=== PATIENT | male | born 1960 ===

== ENCOUNTER 2017-01-17 23:21 | Emergency (ER) | payer SELFPAY ==
[2017-01-17 23:32] VITALS: TEMP 98.9
--- NOTE | 2017-01-18 01:00 | ED PDOC ---
HPI: SOB/CHF/COPD Time Seen by Provider: 01/17/17 23:46 Chief Complaint (Nursing): Shortness Of Breath Chief Complaint (Provider): Shortness of breath History Per: EMS, Family History/Exam Limitations: clinical condition, intoxication Additional Complaint(s): Patient is a 56 y/o male with a past medical history of chronic COPD, asthma, and hypertension brought to the emergency department by EMS from his home for acute alcohol intoxication and shortness of breath. Per family, patient was drinking alcohol and smoking a cigarette when he started feeling short of breath and wheezy. Also may have snorted heroin. Of note, patient is known to use cocaine. Patient admits to drinking but denies chest pain or other complaints. Patient was also given nebs by EMS en route to ED. History is limited due to patient's clinical condition. PCP: none provided. Past Medical History Reviewed: Historical Data, Nursing Documentation, Vital Signs Vital Signs: Last Vital Signs Temp 98.9 F 01/17/17 23:24 Pulse 79 01/18/17 02:32 Resp 20 01/18/17 02:32 BP 129/73 01/18/17 02:32 Pulse Ox 100 01/18/17 02:32 - Medical History PMH: Asthma, COPD, HTN, Chronic Pain (back) - Surgical History Surgical History: Hernia Repair Other surgeries: Splenectomy - Family History Family History: States: Unknown Family Hx, Hypertension - Home Medications Home Medications: Ambulatory Orders Medication Instructions Recorded Albuterol HFA [Ventolin HFA 90 2 puff IH Q6H PRN 07/31/15 mcg/actuation (8 g)] Budesonide/Formoterol Fumarate 2 puff IH Q12H 07/31/15 [Symbicort 160-4.5 Mcg Inhaler] Oxycodone HCl/Acetaminophen 1 tab PO TID PRN 07/31/15 [Percocet 5-325 mg Tablet] Albuterol 0.5% [Albuterol 0.5% 3 ml IH Q4H PRN #50 neb 01/30/16 Inhal Kaycee (2.5 mg/0.5 ml) UD] Albuterol HFA [Ventolin HFA 90 2 puff IH Q4H PRN #1 inh 01/30/16 mcg/actuation (8 g)] Azithromycin [Zithromax] 250 mg PO DAILY #6 dose 01/30/16 Oxymetazoline 0.05% [Afrin 0.05%] 30 spr NS Q12H #1 bottle 01/30/16 Pseudoephedrine [Sudafed Tab] 30 mg PO Q6 PRN #30 tab 01/30/16 traMADol [Ultram] 1 tab PO TID 01/30/16 Prednisone [Deltasone] 40 mg PO DAILY 4 Days tablet 02/10/16 Albuterol HFA [Ventolin HFA 90 2 puff IH [id number] #30 puff 01/18/17 mcg/actuation (8 g)] Prednisone 50 mg PO DAILY #4 tablet 01/18/17 - Allergies Allergies/Adverse Reactions: Allergies Allergy/AdvReac Type Severity Reaction Status Date / Time No Known Allergies Allergy Verified 01/17/17 23:32 Review of Systems ROS Statement: Except As Marked, All Systems Reviewed And Found Negative Cardiovascular: Negative for: Chest Pain Psych: Positive for: Other (EtOH intoxication) Physical Exam - Reviewed Nursing Documentation Reviewed: Yes Vital Signs Reviewed: Yes - Physical Exam Appears: Positive for: No Acute Distress, Uncomfortable Head Exam: Positive for: ATRAUMATIC, NORMAL INSPECTION, NORMOCEPHALIC Skin: Positive for: Normal Color, Warm, Dry Eye Exam: Positive for: Normal appearance, PERRL Neck: Positive for: Normal, Supple Cardiovascular/Chest: Positive for: Regular Rate, Rhythm. Negative for: Murmur Respiratory: Positive for: Normal Breath Sounds. Negative for: Accessory Muscle Use, Respiratory Distress Gastrointestinal/Abdominal: Positive for: Normal Exam, Soft. Negative for: Tenderness Extremity: Positive for: Normal ROM. Negative for: Pedal Edema Neurologic/Psych: Positive for: Other (somnolent but easily arousable to voice and touch) - Laboratory Results Result Diagrams: 01/18/17 01:22 01/18/17 01:22 - ECG ECG Rhythm: Positive for: Normal QRS, Sinus Rhythm. Negative for: ST/T Changes Rate: 83 O2 Sat by Pulse Oximetry: 99 (RA) Pulse Ox Interpretation: Normal Medical Decision Making Medical Decision Making: Time: 00:36 Initial impression: Alcohol abuse, opioid abuse, and chronic COPD. Initial plan: ABG EKG Alcohol serum levels BMP Urine Drug Screening CBC Reevaluation 0600 Patient is alert and awake. Bilateral wheezes on exam. Ordered duonebs. 0700 Patient is improved. Stable for discharge. Scribe Attestation: Documented by Nabila Whitaker, acting as a scribe for Teena Ashby MD. Provider Scribe Attestation: All medical record entries made by the Scribe were at my direction and personally dictated by me. I have reviewed the chart and agree that the record accurately reflects my personal performance of the history, physical exam, medical decision making, and the department course for this patient. I have also personally directed, reviewed, and agree with the discharge instructions and disposition. Disposition - Clinical Impression Clinical Impression: COPD exacerbation, Substance abuse - Patient ED Disposition Is Patient to be Admitted: No Counseled Patient/Family Regarding: Studies Performed, Diagnosis, Need For Followup - Disposition Referrals: [facility] [Outside] Disposition: Routine/Home Disposition Time: 07:00 Condition: GOOD Additional Instructions: Follow up with your PCP in 2-3 days. Prescriptions: Albuterol HFA [Ventolin HFA 90 mcg/actuation (8 g)] 2 puff IH [id number] #30 puff Prednisone 50 mg PO DAILY #4 tablet Instructions: COPD (Chronic Obstructive Pulmonary Disease) (ED), Polysubstance Abuse (ED)
[2017-01-18 01:38] LABS: ALCOHOL SERUM < 10 mg/dl (0-10); BLOOD UREA NITROGEN 18 mg/dl (9-20); CALCIUM 9.2 mg/dL (8.4-10.2); CARBON DIOXIDE 30 mmol/L (22-30); CHLORIDE 104 mmol/L (98-107); GFR AFRICAN-AMERICAN > 60; GLUCOSE,RANDOM 83 mg/dL (75-110); POTASSIUM 4.6 MMOL/L (3.6-5.0); SODIUM 142 mmol/l (132-148)
[2017-01-18 01:58] LABS: BASO # 0.1 K/uL (0.0-0.2); BASO % 0.6 % (0.0-2.0); EOS # 0.5 K/uL (0.0-0.7); EOS % 3.8 % (0.0-4.0); HEMATOCRIT 38.6 % (35.0-51.0); LYMPH # 2.5 K/uL (1.0-4.3); LYMPH % 19.8 % (20.0-40.0); MEAN CELL VOLUME 96.4 fl (80.0-94.0); MEAN CORPUSCULAR HEMOGLOBIN 32.1 pg (27.0-31.0); MEAN CORPUSCULAR HGB CONC 33.3 g/dL (33.0-37.0); MEAN PLATELET VOLUME 9.1 fl (7.2-11.7); MONO # 1.8 K/uL (0.0-0.8); NEUT # 7.8 K/uL (1.8-7.0); NEUT % 61.8 % (50.0-75.0); NRBC % 0.1 % (0.0-0.0); RED CELL DISTRIBUTION WIDTH 14.1 % (11.5-14.5); WHITE BLOOD COUNT 12.6 K/uL (4.8-10.8)
[2017-01-18 03:09] VITALS: BP 129/73; RESP 20
[2017-01-18] MEDS ORDERED: Albuterol-Ipratrop 3 mg / 0.5 (3 ml) UD INH STA ×2 (06:12→06:54)
--- NOTE | 2017-01-18 10:50 | CARD ---
APPROVED REPORT EKG Measurement Heart [id number] CT [id number] <Conclusion> Normal sinus rhythm Normal ECG
[2017-01-26 23:30] VITALS: PULSE 83; O2SAT 99
== END 2017-01-18 07:36 | disposition home or self-care (01) ==
LOC: H.ER 23:21
DX: J44.1 Chronic obstructive pulmonary disease with (acute) exacerbation (principal); F11.10 Opioid abuse, uncomplicated; G89.29 Other chronic pain; I10 Essential (primary) hypertension; F10.129 Alcohol abuse with intoxication, unspecified
CPT/HCPCS: 80048; 85025; 93005; 99285; G0480

== ENCOUNTER 2017-05-21 21:38 | Emergency (ER) | payer MEDICAID ==
[2017-05-21] MEDS ORDERED: Albuterol-Ipratrop 3 mg / 0.5 (3 ml) UD INH STA (22:01)
[2017-05-21] MEDS ORDERED: Albuterol-Ipratrop 3 mg / 0.5 (3 ml) UD ONE (22:10)
[2017-05-21] MEDS ORDERED: Lidocaine 5% Patch TD STA (22:25)
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
[2017-05-21] MEDS ORDERED: Lidocaine 5% Patch TD ONE (22:51)
[2017-05-21] MEDS ORDERED: Albuterol 0.083% Inhal Sol (2.5 mg/3 mL) UD IH STA (23:31)
[2017-05-21] MEDS ORDERED: Albuterol 0.083% Inhal Sol (2.5 mg/3 mL) UD ONE (23:33)
[2017-05-22 00:16] VITALS: BP 160/90; PULSE 87; RESP 16; TEMP 98.4; O2SAT 93
--- NOTE | 2017-05-23 10:04 | RAD ---
HISTORY: sob COMPARISON: Chest radiograph dated 04/12/2015 FINDINGS: LUNGS: No active pulmonary disease. PLEURA: No significant pleural effusion identified, no pneumothorax apparent. CARDIOVASCULAR: Normal. OSSEOUS STRUCTURES: Unchanged. VISUALIZED UPPER ABDOMEN: Normal. OTHER FINDINGS: None. IMPRESSION: No active disease.
== END 2017-05-22 00:17 | disposition home or self-care (01) ==
LOC: H.ER 21:38
DX: J44.1 Chronic obstructive pulmonary disease with (acute) exacerbation (principal); G89.29 Other chronic pain; I10 Essential (primary) hypertension
CPT/HCPCS: 71045; 94150; 94640; 96372; 99284; J2930

== ENCOUNTER 2017-07-09 19:53 | Observation (INO) | payer MEDICAID ==
[2017-07-09] MEDS ORDERED: Albuterol-Ipratrop 3 mg / 0.5 (3 ml) UD INH STA (20:25)
[2017-07-09] MEDS ORDERED: Magnesium Sulfate 2 gm/50 ml 2 GM/50 ML BAG IV STA ×2 (20:25→22:25)
[2017-07-09] MEDS ORDERED: Magnesium Sulfate 2 gm/50 ml 2 GM/50 ML BAG ONE (20:35)
--- NOTE | 2017-07-09 20:39 | ED PDOC ---
HPI: SOB/CHF/COPD Time Seen by Provider: 07/09/17 20:06 Chief Complaint (Nursing): Shortness Of Breath Chief Complaint (Provider): Shortness Of Breath History Per: Patient History/Exam Limitations: no limitations Onset/Duration Of Symptoms: Days (x2) Current Symptoms Are (Timing): Still Present Additional Complaint(s): 56 year old male with a pmhx of asthma presents to the emergency department via EMS complaining of shortness of breath, wheezing, and dry cough onset two days ago. Denies fever, vomiting, diarrhea. Patient states he has had multiple visits to the ED for similar asthma symptoms and treatments. He reports using his inhaler, nebulizer, and on-hand prednisone without any relief. Patient is a smoker, which he states is a trigger for his asthma. PMD: none provided Past Medical History Reviewed: Historical Data, Nursing Documentation, Vital Signs Vital Signs: Last Vital Signs Temp 98.3 F 07/10/17 00:54 Pulse 83 07/10/17 00:54 Resp 20 07/10/17 00:54 BP 137/87 07/10/17 00:54 Pulse Ox 94 L 07/10/17 00:54 - Medical History PMH: Asthma, COPD, Diverticulitis, HTN, Chronic Pain (back) - Surgical History Surgical History: Hernia Repair - Family History Family History: States: Unknown Family Hx, Hypertension - Social History Current smoker - smoking cessation education provided: Yes (6 cigarettes daily) - Home Medications Home Medications: Ambulatory Orders Medication Instructions Recorded Albuterol HFA [Ventolin HFA 90 2 puff IH Q6H PRN 07/31/15 mcg/actuation (8 g)] Oxycodone HCl/Acetaminophen 1 tab PO TID PRN 07/31/15 [Percocet 5-325 mg Tablet] Prednisone 50 mg PO DAILY #4 tablet 01/18/17 Lidocaine 5% [Lidoderm] 1 ea TD DAILY PRN #30 patch 05/22/17 Naproxen [Naprosyn] 1 tab PO BID PRN #30 tab 05/22/17 Methylprednisolone [Medrol Dosepak] 4 mg PO ASDIR #1 pkg 07/09/17 - Allergies Allergies/Adverse Reactions: Allergies Allergy/AdvReac Type Severity Reaction Status Date / Time No Known Allergies Allergy Verified 07/09/17 19:58 Review of Systems ROS Statement: Except As Marked, All Systems Reviewed And Found Negative Constitutional: Negative for: Fever Respiratory: Positive for: Cough (dry), Shortness of Breath, Wheezing Gastrointestinal: Negative for: Vomiting, Diarrhea Physical Exam - Reviewed Nursing Documentation Reviewed: Yes Vital Signs Reviewed: Yes - Physical Exam Appears: Positive for: Non-toxic, No Acute Distress Head Exam: Positive for: ATRAUMATIC, NORMOCEPHALIC Skin: Positive for: Normal Color, Warm, Dry Eye Exam: Positive for: Normal appearance, EOMI, PERRL ENT: Positive for: Normal ENT Inspection Neck: Positive for: Normal, Painless ROM, Supple Cardiovascular/Chest: Positive for: Regular Rate, Rhythm. Negative for: Murmur Respiratory: Positive for: Decreased Breath Sounds (on inhalation bilaterally), Wheezing (mild expiratory bilaterally), Respiratory Distress (mild) Gastrointestinal/Abdominal: Positive for: Normal Exam, Soft. Negative for: Tenderness Back: Positive for: Normal Inspection Extremity: Positive for: Normal ROM Neurologic/Psych: Positive for: Alert, Oriented - Laboratory Results Result Diagrams: 07/09/17 21:08 07/09/17 21:08 - ECG O2 Sat by Pulse Oximetry: 97 (RA) Pulse Ox Interpretation: Normal Medical Decision Making Medical Decision Making: Time: 20:10 Initial Impression: 56 year old male with shortness of breath and wheezing with acute asthma exacerbation, respiratory distress Initial Plan: --EKG --BMP --CBC with differential --Duoneb 9ml INH --Magnesium sulfate 2gm Sodium Chloride 100ml IV --methylprednisolone 125mg IVP --Peak flow pre/post tx 22:30 On reexamination, patient still has persistent wheezing. Pt notes only mild improvement in symptoms. On reexam he has persitent wheezing and mild resp distress He will be placed on observation status for COPD exacerbation. Case referred to Dr. Avendano. Scribe Attestation: Documented by Briseyda Ryees, acting as a scribe for Juliocesar Dhillon MD. Provider Scribe Attestation: All medical record entries made by the Scribe were at my direction and personally dictated by me. I have reviewed the chart and agree that the record accurately reflects my personal performance of the history, physical exam, medical decision making, and the department course for this patient. I have also personally directed, reviewed, and agree with the discharge instructions and disposition. Disposition - Clinical Impression Clinical Impression: COPD exacerbation - Patient ED Disposition Is Patient to be Admitted: No Counseled Patient/Family Regarding: Studies Performed, Diagnosis, Smoking Cessation - Disposition Disposition: Routine/Home Disposition Time: 22:30 Condition: FAIR - Pt Status Changed To: Hospital Disposition Of: Observation
[2017-07-09 21:12] LABS: BASO % 0.1 % (0.0-2.0); HEMOGLOBIN 13.8 g/dL (12.0-18.0); LYMPH # 0.6 K/uL (1.0-4.3); LYMPH % 6.1 % (20.0-40.0); MEAN CELL VOLUME 97.6 fl (80.0-94.0); MEAN CORPUSCULAR HEMOGLOBIN 32.3 pg (27.0-31.0); MEAN CORPUSCULAR HGB CONC 33.2 g/dL (33.0-37.0); MEAN PLATELET VOLUME 9.4 fl (7.2-11.7); MONO # 0.6 K/uL (0.0-0.8); MONO % 6.2 % (0.0-10.0); NEUT # 8.2 K/uL (1.8-7.0); NEUT % 87.6 % (50.0-75.0); PLATELET COUNT 225 K/uL (130-400); RBC 4.25 Mil/uL (4.40-5.90); RED CELL DISTRIBUTION WIDTH 14.5 % (11.5-14.5); WHITE BLOOD COUNT 9.4 K/uL (4.8-10.8)
[2017-07-09 21:21] LABS: BLOOD UREA NITROGEN 17 mg/dl (9-20); CALCIUM 9.6 mg/dL (8.4-10.2); GFR AFRICAN-AMERICAN > 60; GFR NON-AFRICAN AMERICAN > 60
[2017-07-09 21:42] LABS: BANDS 1 % (0-2); LYMPHOCYTE 6 % (20-50); MONOCYTE 3 % (0-10); NEUTROPHIL 90 % (42-75); PLATELET ESTIMATE NORMAL (NORMAL); TOTAL CELLS COUNTED 100
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
[2017-07-09] MEDS ORDERED: Albuterol 0.083% Inhal Sol (2.5 mg/3 mL) UD INH PRN (23:15)
[2017-07-10] MEDS ORDERED: methylPREDNISolone 40 MG in Sodium Chloride 0.9% 50 ML IVPB SCH (04:00)
[2017-07-10] MEDS ORDERED: MethylPREDNISolone 40 mg Vial IVP SCH (04:00)
[2017-07-10] MEDS: guaiFENesin 600 mg ER Tab PO SCH ×2 (04:15→09:09)
[2017-07-10] MEDS: Albuterol-Ipratrop 3 mg / 0.5 (3 ml) UD INH SCH ×6 (04:53→19:59)
[2017-07-10] MEDS: Sodium Chloride 0.45% 1,000 ML IV SCH ×3 (04:59→22:37)
--- NOTE | 2017-07-10 08:11 | CP.PCM.PN ---
Subjective - Date & Time of Evaluation Date of Evaluation: 07/10/17 Time of Evaluation: 08:11 - Subjective Subjective: pt continues to wheeze with some fatigue with speech. dyspnea mildly improving hd stable nad patient refusing bloodwork this AM Objective - Vital Signs/Intake and Output Vital Signs (last 24 hours): Temp Pulse Resp BP Pulse Ox 97.6 F 76 18 159/67 H 94 L 07/10/17 07:53 07/10/17 07:53 07/10/17 07:53 07/10/17 07:53 07/10/17 07:53 Vitals Reviewed GEN: WDWN, alert, cooperative HEENT: NCAT, PERRL, EOMI HEART: RRR, +S1S2, NO MRG LUNG: +WHEEZE THROUGHOUT ALL LUNG [place], MILD FATIGUE WITH SPEAKING ABD: soft, NT, ND, No HSM, No masses EXT: normal pedal pulses, normal capillary refill NEURO: awake, alert, no focal deficits SKIN: warm, dry PSYCH: normal mood, normal affect - Medications Medications: Current Medications Albuterol Sulfate (Albuterol 0.083% Inhal [place] (2.5 Mg/3 Ml) Ud) 2.5 mg INH RQ2 PRN PRN Reason: Shortness of Breath Albuterol/Ipratropium (Duoneb 3 Mg/0.5 Mg (3 Ml) Ud) 3 ml INH RQ4 [facility] Last Admin: 07/10/17 07:40 Dose: 3 ml Enoxaparin Sodium (Lovenox) 40 mg SC DAILY ADAN PRN Reason: Protocol Guaifenesin (Mucinex La) 600 mg PO Q12 [facility] Last Admin: 07/10/17 04:15 Dose: Not Given Sodium Chloride (Sodium Chloride 0.45%) 1,000 mls @ 100 mls/hr IV .Q10H [facility] Stop: 07/10/17 23:19 Last Admin: 07/10/17 04:59 Dose: 100 mls/hr Methylprednisolone (Solu-Medrol) 40 mg IVP Q6 [facility] Last Admin: 07/10/17 04:34 Dose: 40 mg - Labs Labs: 07/09/17 21:08 07/09/17 21:08 Assessment and Plan - Assessment and Plan (Free Text) Plan: 56 years old male with hx of Asthma comes with 2 days of persistent SOB and wheezing not being relieved by his inhaler, nebulizer nor his Prednisone tablets. Associated also is non productive cough, but no chest pain, fever vomiting , diarrhea nor palpitations. He uses cigarettes which sometimes initiates his Asthma. Asthma with COPD exacerbation - patient is mildly improving, however continues to wheeze, very tight. Will benefit from likely one more day of bronchodilators and steroids. - oxygen - Duoneb q4H - Albuterol q2h PRN - Solumedrol 60 mg IVP q8 - IV fluid #. Hyperkalemia - Follow electrolytes - patient refusing blood work this morning. #. Hyperglycemia - HbA1c #. DVT prophylaxis with Lovenox #. Code status: Full
--- NOTE | 2017-07-10 08:58 | RAD ---
HISTORY: SOB COMPARISON: 05/21/2017. FINDINGS: LUNGS: The lungs are well inflated and clear. There is mild pulmonary venous congestion. PLEURA: No significant pleural effusion identified, no pneumothorax apparent. CARDIOVASCULAR: Normal. OSSEOUS STRUCTURES: No significant abnormalities. VISUALIZED UPPER ABDOMEN: Normal. OTHER FINDINGS: None. IMPRESSION: No active pulmonary disease.
[2017-07-10] MEDS: Enoxaparin 40 mg Syringe SC SCH (09:09)
[2017-07-10 12:08] LABS: BLOOD UREA NITROGEN 18 mg/dl (9-20); CALCIUM 9.4 mg/dL (8.4-10.2); GFR AFRICAN-AMERICAN > 60; GFR NON-AFRICAN AMERICAN > 60
[2017-07-10 15:42] VITALS: O2SAT 95
[2017-07-10 23:00] LABS: BARBITURATES, UR NEGATIVE (NEGATIVE); BENZODIAZEPINES, UR NEGATIVE (NEGATIVE); OPIATES, UR POSITIVE (NEGATIVE); PHENCYCLIDINE, UR NEGATIVE (NEGATIVE)
[2017-07-11] MEDS ORDERED: Oxycodone/Acetaminophen 5/325 mg Tab PO STA (00:35)
[2017-07-11] MEDS: Albuterol-Ipratrop 3 mg / 0.5 (3 ml) UD INH SCH ×3 (00:43→07:06)
[2017-07-11] MEDS: Enoxaparin 40 mg Syringe SC SCH (08:24)
[2017-07-11 08:36] VITALS: BP 173/98; PULSE 95; RESP 20; TEMP 98.2
--- NOTE | 2017-07-11 10:29 | CP.PCM.DIS ---
Provider - Provider Date of Admission: 07/09/17 22:26 Attending physician: Herminio Avendano Time Spent in preparation of Discharge (in minutes): 30 Hospital Course - Lab Results Lab Results: Most Recent Lab Values WBC 9.4 K/uL (4.8-10.8) 07/09/17 21:08 RBC 4.25 Mil/uL (4.40-5.90) L 07/09/17 21:08 Hgb 13.8 g/dL (12.0-18.0) 07/09/17 21:08 Hct 41.5 % (35.0-51.0) 07/09/17 21:08 MCV 97.6 fl (80.0-94.0) H 07/09/17 21:08 MCH 32.3 pg (27.0-31.0) H 07/09/17 21:08 MCHC 33.2 g/dL (33.0-37.0) 07/09/17 21:08 RDW 14.5 % (11.5-14.5) 07/09/17 21:08 Plt Count 225 K/uL (130-400) 07/09/17 21:08 MPV 9.4 fl (7.2-11.7) 07/09/17 21:08 Neut % (Auto) 87.6 % (50.0-75.0) H 07/09/17 21:08 Lymph % (Auto) 6.1 % (20.0-40.0) L 07/09/17 21:08 [place] % (Auto) 6.2 % (0.0-10.0) 07/09/17 21:08 Eos % (Auto) 0.0 % (0.0-4.0) 07/09/17 21:08 Baso % (Auto) 0.1 % (0.0-2.0) 07/09/17 21:08 Neut # (Auto) 8.2 K/uL (1.8-7.0) H 07/09/17 21:08 Lymph # (Auto) 0.6 K/uL (1.0-4.3) L 07/09/17 21:08 [place] # (Auto) 0.6 K/uL (0.0-0.8) 07/09/17 21:08 Eos # (Auto) 0.0 K/uL (0.0-0.7) 07/09/17 21:08 Baso # (Auto) 0.0 K/uL (0.0-0.2) 07/09/17 21:08 Neutrophils % (Manual) 90 % (42-75) H 07/09/17 21:08 Band Neutrophils % 1 % (0-2) 07/09/17 21:08 Lymphocytes % (Manual) 6 % (20-50) L 07/09/17 21:08 Monocytes % (Manual) 3 % (0-10) 07/09/17 21:08 Platelet Estimate Normal (NORMAL) 07/09/17 21:08 Sodium 144 mmol/l (132-148) 07/10/17 11:34 Potassium 4.6 MMOL/L (3.6-5.0) 07/10/17 11:34 Chloride 107 mmol/L (98-107) 07/10/17 11:34 Carbon Dioxide 23 mmol/L (22-30) 07/10/17 11:34 Anion Gap 19 (10-20) 07/10/17 11:34 BUN 18 mg/dl (9-20) 07/10/17 11:34 Creatinine 0.8 mg/dl (0.8-1.5) 07/10/17 11:34 Est GFR ( Amer) > 60 07/10/17 11:34 Est GFR (Non-Af Amer) > 60 07/10/17 11:34 Random Glucose 195 mg/dL (75-110) H 07/10/17 11:34 Hemoglobin A1c 5.7 % (4.2-6.5) 07/10/17 11:34 Calcium 9.4 mg/dL (8.4-10.2) 07/10/17 11:34 Urine Opiates Screen Positive (NEGATIVE) H 07/10/17 22:00 Urine Methadone Screen Negative (NEGATIVE) 07/10/17 22:00 Ur Barbiturates Screen Negative (NEGATIVE) 07/10/17 22:00 Ur Phencyclidine Scrn Negative (NEGATIVE) 07/10/17 22:00 Ur Amphetamines Screen Negative (NEGATIVE) 07/10/17 22:00 U Benzodiazepines Scrn Negative (NEGATIVE) 07/10/17 22:00 U Oth Cocaine Metabols Negative (NEGATIVE) 07/10/17 22:00 U Cannabinoids Screen Negative (NEGATIVE) 07/10/17 22:00 - Hospital Course Hospital Course: 56 years old male with hx of Asthma comes with 2 days of persistent SOB and wheezing not being relieved by his inhaler, nebulizer nor his Prednisone tablets. Associated also is non productive cough, but no chest pain, fever vomiting , diarrhea nor palpitations. He uses cigarettes which sometimes initiates his Asthma. Asthma with COPD exacerbation - patient improved this morning, minimal wheezing on exam - ambulated with patient down coombs without ANY difficulty, requesting opioids for a headache- Toradol and high dose Tylenol given. - saturating at likely baseline - discharge with duonebs, Medrol dose pack, and follow up with PCP in one week, [facility] referral given. #. Hyperkalemia - Follow electrolytes - patient refusing blood work - K resolved as of yesterday #. Hyperglycemia - HbA1c #. DVT prophylaxis with Lovenox #. Code status: Full Discharge Exam - Head Exam Additional comments: GENERAL APPEARANCE: Well developed, well nourished, alert and cooperative, and appears to be in no acute distress. HEENT: normocephalic, atraumatic PERRL, EOMI. Vision is grossly intact NECK: Neck supple, non-tender without lymphadenopathy, masses or thyromegaly. CARDIAC: Normal S1 and S2. No S3, S4 or murmurs. Rhythm is regular. LUNGS: minimal wheezing, no acute respiratory distress or difficulty at rest or on exertion. maintains good sats at rest and with ambulation. ABDOMEN: Positive bowel sounds. Soft, nondistended, nontender. No guarding or rebound. No masses. BACK: Examination of the spine reveals no spinal deformity, symmetry of spinal muscles, EXTREMITIES: No significant deformity or joint abnormality. No edema. NEUROLOGICAL: Strength and sensation symmetric and intact throughout. Reflexes 2 + throughout. SKIN: Skin normal color, texture and turgor with no lesions or eruptions. PSYCHIATRIC: The patient was oriented to person, place, and time. Normal affect. Discharge Plan - Discharge Medications Prescriptions: Albuterol HFA [Ventolin HFA 90 mcg/actuation (8 g)] 2 puff IH Q6H PRN #1 inhaler PRN Reason: Shortness Of Breath Albuterol/Ipratropium [Duoneb 3 mg/0.5 mg (3 ml) UD] 3 ml INH RQ4 #60 neb Methylprednisolone [Medrol Dose Pack (21 tabs)] 4 mg PO ASDIR #21 mg Methylprednisolone [Medrol Dosepak] 4 mg PO ASDIR #1 pkg - Follow Up Plan Condition: FAIR Disposition: HOME/ ROUTINE Instructions: Exacerbation of COPD Referrals: [facility] [place] [Outside]
== END 2017-07-11 11:45 | disposition home or self-care (01) ==
LOC: H.ER 19:53 → H.ERHOLD 22:26 → H.MEDSURG1 07-10 00:15
PROVIDERS: ADMIT Internal Medicine; ATTEND Internal Medicine
DX: J44.1 Chronic obstructive pulmonary disease with (acute) exacerbation (principal); E87.5 Hyperkalemia; R73.9 Hyperglycemia, unspecified; I10 Essential (primary) hypertension; G89.29 Other chronic pain; F17.210 Nicotine dependence, cigarettes, uncomplicated
CPT/HCPCS: 36415; 71045; 80048; 82803; 83036; 85025; 94640; 96360; 96374; 99283; G0378; G0480; J1885; J2920; J2930; J7030

== ENCOUNTER 2017-08-08 02:52 | Emergency (ER) | payer MEDICAID, OTHER ==
[2017-08-08] MEDS ORDERED: Albuterol-Ipratrop 3 mg / 0.5 (3 ml) UD INH STA ×4 (02:59→03:07)
[2017-08-08] MEDS ORDERED: Magnesium Sulfate 2 GM in Sodium Chloride 0.9% 100 ML IV STA (02:59)
[2017-08-08] MEDS ORDERED: Magnesium Sulfate 2 gm/50 ml 2 GM/50 ML BAG IV STA (03:06)
[2017-08-08 03:18] LABS: BASO # 0.1 K/uL (0.0-0.2); BASO % 0.9 % (0.0-2.0); EOS # 0.9 K/uL (0.0-0.7); EOS % 11.5 % (0.0-4.0); HEMOGLOBIN 13.7 g/dL (12.0-18.0); MEAN CELL VOLUME 95.8 fl (80.0-94.0); MEAN CORPUSCULAR HEMOGLOBIN 33.1 pg (27.0-31.0); MEAN CORPUSCULAR HGB CONC 34.5 g/dL (33.0-37.0); MEAN PLATELET VOLUME 8.8 fl (7.2-11.7); MONO # 1.3 K/uL (0.0-0.8); MONO % 16.6 % (0.0-10.0); NEUT # 2.6 K/uL (1.8-7.0); NRBC % 0.2 % (0.0-0.0); RBC 4.14 Mil/uL (4.40-5.90); RED CELL DISTRIBUTION WIDTH 13.8 % (11.5-14.5); WHITE BLOOD COUNT 7.8 K/uL (4.8-10.8)
[2017-08-08] MEDS ORDERED: Albuterol-Ipratrop 3 mg / 0.5 (3 ml) UD ONE (03:33)
[2017-08-08 03:36] LABS: BLOOD UREA NITROGEN 20 mg/dl (9-20); CALCIUM 9.3 mg/dL (8.4-10.2); GFR AFRICAN-AMERICAN > 60; GFR NON-AFRICAN AMERICAN 52
--- NOTE | 2017-08-08 04:11 | ED PDOC ---
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 Patient is well known to the provider and this ED for multiple visits related to asthma. O (-) chest pain, cough, or vomiting. Patient states he was admitted 3 weeks ago for COPD exacerbation. 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 Of note, patient is a persistent smoker and has reduced his intake from 2 packs QD to 8-10 cigarettes QD. PCP: None Past Medical History Reviewed: Historical Data, Nursing Documentation, Vital Signs Vital Signs: Last Vital Signs Temp 98.6 F 08/08/17 04:35 Pulse 81 08/08/17 04:18 Resp 99 H 08/08/17 04:14 BP 175/76 H 08/08/17 04:14 Pulse Ox 97 08/08/17 04:18 - Medical History PMH: Arthritis, Asthma, COPD, Diverticulitis, HTN, Chronic Pain (back) Denies: Diabetes, Hepatitis, HIV, Chronic Kidney Disease, Seizures, Sexually Transmitted Disease - Surgical History Surgical History: Hernia Repair - Family History Family History: States: Unknown Family Hx, Hypertension - Social History Current smoker - smoking cessation education provided: Yes (8-10 cigarettes a day) Ex-Smoker (has not smoked in the last 12 months): No Alcohol: None Drugs: Opiates - Immunization History Hx Tetanus Toxoid Vaccination: No Hx Influenza Vaccination: No Hx Pneumococcal Vaccination: No - Home Medications Home Medications: Ambulatory Orders Medication Instructions Recorded Albuterol HFA [Ventolin HFA 90 1 puff INH RQ6 PRN #1 inhaler 07/21/17 mcg/actuation (8 g)] hydrOXYzine HCl [Atarax] 25 mg PO DAILY PRN #30 tab 07/21/17 traZODone [Desyrel] 50 mg PO HS PRN #30 tab 07/21/17 - Allergies Allergies/Adverse Reactions: Allergies Allergy/AdvReac Type Severity Reaction Status Date / Time No Known Allergies Allergy Verified 07/16/17 16:31 Curb-65 Severity Score - CURB-65 Severity Score Confusion: No Respiratory Rate greater than/equal to 30: No Systolic BP <90 or Diastolic BP less than/equal 60mmHg: No Age >64: No Curb-65 Score: 0 Percentage 30-day mortality: 0.6% Wells Criteria for PE - Wells Criteria for Pulmonary Embolism Clinical Signs and Symptoms of DVT: No P.E is #1 Diagnosis, or Equally Likely: No Heart Rate >100: No Immobilization at least 3 days;Surgery previous 4 weeks: No Previous, objectively diagnosed PE or DVT: No Hemoptysis: No Malignancy w/treatment within 6 months, or palliative: No Total Score: 0 Review of Systems ROS Statement: Except As Marked, All Systems Reviewed And Found Negative Respiratory: Positive for: Shortness of Breath, Wheezing. Negative for: Cough, Pleuritic Pain Gastrointestinal: Negative for: Vomiting Physical Exam - Reviewed Nursing Documentation Reviewed: Yes Vital Signs Reviewed: Yes - Physical Exam Appears: Positive for: Non-toxic Skin: Positive for: Normal Color, Warm, Dry Eye Exam: Positive for: Normal appearance Cardiovascular/Chest: Positive for: Regular Rate, Rhythm. Negative for: Murmur Respiratory: Positive for: Decreased Breath Sounds (decreased air entry), Wheezing (diffuse expiratory wheeze), Respiratory Distress (in mild respiratory distress). Negative for: Normal Breath Sounds Gastrointestinal/Abdominal: Positive for: Normal Exam Extremity: Positive for: Normal ROM. Negative for: Deformity Neurologic/Psych: Positive for: Alert, Oriented. Negative for: Motor/Sensory Deficits - Laboratory Results Result Diagrams: 08/08/17 03:14 08/08/17 03:14 - ECG ECG: Positive for: Interpreted By Me, Viewed By Me ECG Rhythm: Positive for: Normal QRS, Normal ST Segment, Sinus Rhythm Rate: 81 (02:55 08/08/2017) O2 Sat by Pulse Oximetry: 97 (RA) Pulse Ox Interpretation: Normal - Critical Care Total Time (In Min): 30 Medical Decision Making Medical Decision Makin Initial impression: 56 year old male with acute COPD exacerbation Initial plan: * EKG * EtOH serum * Labs * UDrug screen * Duonebs 9ml INH * Duonebs 3mL INH * Duonebs 3mL INH * Duonebs 3mL INH * Magnesium sulfate IV * Solumedrol 125mg IVP * Peak flow pre/post Tx * Re-eval 0530 Upon re-evaluation patient notes improvement in symptoms. Labs reviewed: no clinically significant abnormalities Patient is stable for discharge home. Dx: COPD exacerbation Condition: improved Scribe Attestation: Documented by Connie Goff acting as a scribe for Juliocesar Dhillon MD. Scribe Attestation: All medical record entries made by the Scribe were at my direction and personally dictated by me. I have reviewed the chart and agree that the record accurately reflects my personal performance of the history, physical exam, medical decision making, and the department course for this patient. I have also personally directed, reviewed, and agree with the discharge instructions and disposition. Disposition - Clinical Impression Clinical Impression: COPD exacerbation - Disposition Disposition: Routine/Home Disposition Time: 05:30 Condition: STABLE Instructions: Chronic Obstructive Pulmonary Disease (COPD), Including Emphysema Forms: [employer] (Chinese)
[2017-08-08 04:35] VITALS: TEMP 98.6
[2017-08-08 06:08] VITALS: BP 162/78; PULSE 82; RESP 16; O2SAT 98
--- NOTE | 2017-08-08 11:05 | CARD ---
APPROVED REPORT EKG Measurement Heart [id number] <Conclusion> Normal sinus rhythm Normal ECG
== END 2017-08-08 06:08 | disposition home or self-care (01) ==
LOC: H.ER 02:52
DX: J44.1 Chronic obstructive pulmonary disease with (acute) exacerbation (principal); F17.210 Nicotine dependence, cigarettes, uncomplicated; G89.29 Other chronic pain; I10 Essential (primary) hypertension
CPT/HCPCS: 80048; 80320; 85025; 93005; 96365; 96375; 99283; J2930; J3475

== ENCOUNTER 2017-09-10 08:25 | Emergency (ER) | payer MEDICAID ==
[2017-09-10 08:32] VITALS: RESP 18; TEMP 98.1; O2SAT 97
[2017-09-10] MEDS ORDERED: Albuterol-Ipratrop 3 mg / 0.5 (3 ml) UD ONE ×2 (08:43→08:45)
[2017-09-10] MEDS ORDERED: Albuterol-Ipratrop 3 mg / 0.5 (3 ml) UD IH STA (08:46)
[2017-09-10] MEDS ORDERED: Albuterol-Ipratrop 3 mg / 0.5 (3 ml) UD INH STA (08:46)
--- NOTE | 2017-09-10 08:48 | ED PDOC ---
HPI: SOB/CHF/COPD Time Seen by Provider: 09/10/17 08:30 Chief Complaint (Nursing): Shortness Of Breath Chief Complaint (Provider): Shortness Of Breath History Per: Patient History/Exam Limitations: no limitations Onset/Duration Of Symptoms: Hrs Current Symptoms Are (Timing): Still Present Current Respiratory Medications: Albuterol Additional Complaint(s): 56 y/o male with a PMHx of Asthma presents to the ED complaining of wheezing, onset last night. Patient reports pain is similar to previous episodes of asthma. Patient states wheezing began due to weather changes. Patient also reports of using an asthma pump at home but states he ran out and continues to wheeze. No chest pain, weakness, dizziness, headaches, cough, congestion, leg pain. PMD: No provider due to recent healthcare coverage. Past Medical History Reviewed: Historical Data, Nursing Documentation, Vital Signs Vital Signs: Last Vital Signs Temp 98.1 F 09/10/17 08:31 Pulse 74 09/10/17 08:31 Resp 18 09/10/17 08:31 BP 151/80 H 09/10/17 08:31 Pulse Ox 97 09/10/17 08:52 - Medical History PMH: Arthritis, Asthma, Diverticulitis, HTN, Chronic Pain (back) Denies: Diabetes, Hepatitis, HIV, Chronic Kidney Disease, Seizures, Sexually Transmitted Disease - Surgical History Surgical History: Hernia Repair - Family History Family History: States: Unknown Family Hx, Hypertension - Social History Current smoker - smoking cessation education provided: Yes (Occasionally) Ex-Smoker (has not smoked in the last 12 months): No - Immunization History Hx Tetanus Toxoid Vaccination: No Hx Influenza Vaccination: No Hx Pneumococcal Vaccination: No - Home Medications Home Medications: Ambulatory Orders Medication Instructions Recorded Albuterol HFA [Ventolin HFA 90 1 puff INH RQ6 PRN #1 inhaler 07/21/17 mcg/actuation (8 g)] hydrOXYzine HCl [Atarax] 25 mg PO DAILY PRN #30 tab 07/21/17 traZODone [Desyrel] 50 mg PO HS PRN #30 tab 07/21/17 Albuterol Sulfate [Proair Hfa] 0.09 mg IH Q6H PRN #2 inh 09/10/17 predniSONE [predniSONE Tab] 20 mg PO BID 5 Days tab 09/10/17 - Allergies Allergies/Adverse Reactions: Allergies Allergy/AdvReac Type Severity Reaction Status Date / Time No Known Allergies Allergy Verified 07/16/17 16:31 Review of Systems ROS Statement: Except As Marked, All Systems Reviewed And Found Negative Respiratory: Positive for: Wheezing Physical Exam - Reviewed Nursing Documentation Reviewed: Yes Vital Signs Reviewed: Yes - Physical Exam Appears: Positive for: No Acute Distress Head Exam: Positive for: ATRAUMATIC Skin: Positive for: Normal Color, Warm, Dry Eye Exam: Positive for: Normal appearance, EOMI, PERRL ENT: Positive for: Normal ENT Inspection. Negative for: Nasal Congestion, Pharyngeal Erythema Neck: Positive for: Normal, Painless ROM, Supple Cardiovascular/Chest: Positive for: Regular Rate, Rhythm Respiratory: Positive for: Wheezing (Bilateral ). Negative for: Accessory Muscle Use Gastrointestinal/Abdominal: Positive for: Normal Exam, Soft. Negative for: Tenderness Back: Positive for: Normal Inspection. Negative for: L CVA Tenderness, R CVA Tenderness, Vertebral Tenderness Extremity: Positive for: Normal ROM. Negative for: Tenderness, Pedal Edema, Deformity Neurologic/Psych: Positive for: Alert, Oriented (x3). Negative for: Motor/ Sensory Deficits - ECG O2 Sat by Pulse Oximetry: 97 (NC) Pulse Ox Interpretation: Normal - Progress ED Course And Treament: 936: Stable. AAOx3. Does not take htn meds. Feels better. Ambulated with no dyspnea. Fu with pcp. Medical Decision Making Medical Decision Making: Time: 845 Plan: -- Duoneb [3 mg/0.5 mg (3 ml) UD] 3 ml INH -- Duoneb [3 mg/0.5 mg (3 ml) UD] 3 ml INH -- Prednisone 60 mg PO -- Peak Flow Pre/Post Treatment Scribe Attestation: Documented by Michael Wright acting as a scribe for Dr. Davidson Steh MD. Provider Scribe Attestation: All medical record entries made by the Scribe were at my direction and personally dictated by me. I have reviewed the chart and agree that the record accurately reflects my personal performance of the history, physical exam, medical decision making, and the department course for this patient. I have also personally directed, reviewed, and agree with the discharge instructions and disposition. Disposition - Clinical Impression Clinical Impression: Asthma exacerbation - Patient ED Disposition Is Patient to be Admitted: No Counseled Patient/Family Regarding: Studies Performed, Diagnosis, Need For Followup, Rx Given - Disposition Referrals: [facility] [Outside] - 09/12/17 Disposition: Routine/Home Disposition Time: 09:36 Condition: STABLE Additional Instructions: Return if not better in 3 days. Prescriptions: Albuterol Sulfate [Proair Hfa] 0.09 mg IH Q6H PRN #2 inh PRN Reason: Wheezing predniSONE [predniSONE Tab] 20 mg PO BID 5 Days tab Instructions: Asthma in Adults Forms: [employer] (Estonian)
[2017-09-10 09:49] VITALS: BP 145/82; PULSE 78
== END 2017-09-10 09:45 | disposition home or self-care (01) ==
LOC: H.ER 08:25
DX: J45.901 Unspecified asthma with (acute) exacerbation (principal); F17.200 Nicotine dependence, unspecified, uncomplicated; I10 Essential (primary) hypertension; J44.9 Chronic obstructive pulmonary disease, unspecified; G89.29 Other chronic pain; M54.9 Dorsalgia, unspecified

== ENCOUNTER 2017-09-10 09:56 | Emergency (ER) | payer MEDICAID ==
[2017-09-10 10:00] VITALS: O2SAT 95; BMI 29.5
[2017-09-10 10:14] VITALS: TEMP 98
--- NOTE | 2017-09-10 10:22 | ED PDOC ---
HPI: Back Time Seen by Provider: 09/10/17 10:15 Chief Complaint (Nursing): Back Pain Chief Complaint (Provider): Back Pain History Per: Patient Additional Complaint(s): 6 y/o male with a PMHx of HTN, COPD, Chronic Back Pain, and Asthma presents to the ED complaining of sudden onset pain in lt buttock and lower back, occurred as he was walking out of the ED this a.m. Pt seen earlier this am for asthma. Pt reports full resolution of asthma symptoms; however, then his lower back pain started. Pt notes that he has a history of pain x 3-4 months now, that comes and goes. Past Medical History Reviewed: Nursing Documentation, Vital Signs Vital Signs: Last Vital Signs Temp 98 F 09/10/17 10:10 Pulse 92 H 09/10/17 10:10 Resp 20 09/10/17 10:10 BP 165/76 H 09/10/17 10:10 Pulse Ox 95 09/10/17 10:10 - Medical History PMH: Arthritis, Asthma, COPD, Diverticulitis, HTN, Chronic Pain (back) Denies: Diabetes, Hepatitis, HIV, Chronic Kidney Disease, Seizures, Sexually Transmitted Disease - Surgical History Surgical History: Hernia Repair - Family History Family History: States: Unknown Family Hx, Hypertension - Living Arrangements Living Arrangements: With Family - Immunization History Hx Tetanus Toxoid Vaccination: No Hx Influenza Vaccination: No Hx Pneumococcal Vaccination: No - Home Medications Home Medications: Ambulatory Orders Medication Instructions Recorded Albuterol HFA [Ventolin HFA 90 1 puff INH RQ6 PRN #1 inhaler 07/21/17 mcg/actuation (8 g)] hydrOXYzine HCl [Atarax] 25 mg PO DAILY PRN #30 tab 07/21/17 traZODone [Desyrel] 50 mg PO HS PRN #30 tab 07/21/17 Albuterol Sulfate [Proair Hfa] 0.09 mg IH Q6H PRN #2 inh 09/10/17 Cyclobenzaprine [Cyclobenzaprine 10 mg PO TID #20 tab 09/10/17 HCl] Ibuprofen [Motrin] 600 mg PO Q6 #20 tab 09/10/17 predniSONE [predniSONE Tab] 20 mg PO BID 5 Days tab 09/10/17 - Allergies Allergies/Adverse Reactions: Allergies Allergy/AdvReac Type Severity Reaction Status Date / Time No Known Allergies Allergy Verified 09/10/17 10:10 Review of Systems Musculoskeletal: Positive for: Back Pain Physical Exam - Reviewed Nursing Documentation Reviewed: Yes Vital Signs Reviewed: Yes - Physical Exam Appears: Positive for: Well, Non-toxic, No Acute Distress Head Exam: Positive for: ATRAUMATIC, NORMAL INSPECTION, NORMOCEPHALIC Skin: Positive for: Normal Color, Warm, DRY Eye Exam: Positive for: EOMI, Normal appearance, PERRL ENT: Positive for: Normal ENT Inspection Neck: Positive for: Normal, Painless ROM Cardiovascular/Chest: Positive for: Regular Rate, Rhythm Respiratory: Positive for: CNT, Normal Breath Sounds Gastrointestinal/Abdominal: Positive for: Normal Exam, Soft Back: Positive for: Normal Inspection Extremity: Positive for: Normal ROM Neurologic/Psych: Positive for: Alert, Oriented - ECG O2 Sat by Pulse Oximetry: 95 Medical Decision Making Medical Decision Making: medicated with Toradol and Flexeril Pt doing well on reeval, asking to leave. Disposition - Clinical Impression Clinical Impression: Sciatica - Patient ED Disposition Is Patient to be Admitted: No - Disposition Disposition: Routine/Home Disposition Time: 10:52 Condition: STABLE Prescriptions: Cyclobenzaprine [Cyclobenzaprine HCl] 10 mg PO TID #20 tab Ibuprofen [Motrin] 600 mg PO Q6 #20 tab Instructions: Sciatica Forms: [employer] (M[place]ovan)
[2017-09-10 10:49] VITALS: BP 156/80; PULSE 90; RESP 18
== END 2017-09-10 10:49 | disposition home or self-care (01) ==
LOC: H.ER 09:56
DX: M54.30 Sciatica, unspecified side (principal); G89.29 Other chronic pain; I10 Essential (primary) hypertension; J44.9 Chronic obstructive pulmonary disease, unspecified
CPT/HCPCS: 96372; 99282; J1885

== ENCOUNTER 2017-11-26 12:01 | Emergency (ER) | payer MEDICAID ==
[2017-11-26 12:01] VITALS: BMI 29.5
[2017-11-26 12:05] VITALS: BP 152/77; PULSE 87; TEMP 98.7; O2SAT 96
[2017-11-26 12:30] VITALS: RESP 20
[2017-11-26] MEDS ORDERED: Albuterol-Ipratrop 3 mg / 0.5 (3 ml) UD INH STA ×3 (12:33→12:35)
--- NOTE | 2017-11-26 13:12 | ED PDOC ---
HPI: SOB/CHF/COPD Time Seen by Provider: 11/26/17 12:25 Chief Complaint (Nursing): Shortness Of Breath Chief Complaint (Provider): Shortness Of Breath History Per: Patient History/Exam Limitations: no limitations Onset/Duration Of Symptoms: Days Current Symptoms Are (Timing): Still Present Additional Complaint(s): 57 y/o male with a PMHx of asthma presents to the ED for evaluation of asthma exacerbation, onset this morning. Patient reports of wheezing and states he wanted to come in before it worsened. Patient reports he does not not have a nebulizer or pump. Denies cough, chest pain, dizziness, leg swelling, pain on calf and previous intubation. PMD: Non [facility] Provider Past Medical History Reviewed: Historical Data, Nursing Documentation, Vital Signs Vital Signs: Last Vital Signs Temp 98.7 F 11/26/17 12:04 Pulse 87 11/26/17 12:04 Resp 20 11/26/17 12:30 BP 152/77 H 11/26/17 12:04 Pulse Ox 96 11/26/17 12:30 - Medical History PMH: Arthritis, Asthma, COPD, Diverticulitis, HTN, Chronic Pain (back) Denies: Diabetes, Hepatitis, HIV, Chronic Kidney Disease, Seizures, Sexually Transmitted Disease - Surgical History Surgical History: Hernia Repair - Family History Family History: States: Unknown Family Hx, Hypertension - Social History Current smoker - smoking cessation education provided: Yes (Occasional) - Immunization History Hx Tetanus Toxoid Vaccination: No Hx Influenza Vaccination: No Hx Pneumococcal Vaccination: No - Home Medications Home Medications: Ambulatory Orders Medication Instructions Recorded Albuterol HFA [Ventolin HFA 90 1 puff INH RQ6 PRN #1 inhaler 07/21/17 mcg/actuation (8 g)] hydrOXYzine HCl [Atarax] 25 mg PO DAILY PRN #30 tab 07/21/17 traZODone [Desyrel] 50 mg PO HS PRN #30 tab 07/21/17 Albuterol Sulfate [Proair Hfa] 0.09 mg IH Q6H PRN #2 inh 09/10/17 Cyclobenzaprine [Cyclobenzaprine 10 mg PO TID #20 tab 09/10/17 HCl] Ibuprofen [Motrin] 600 mg PO Q6 #20 tab 09/10/17 predniSONE [predniSONE Tab] 20 mg PO BID 5 Days tab 09/10/17 Albuterol 0.083% [Albuterol 3 ml IH Q4 #60 neb 11/26/17 Sulfate 3 Ml] Albuterol HFA [Ventolin HFA 90 2 puff IH [id number] #1 pump 11/26/17 mcg/actuation (8 g)] Prednisone [Deltasone] 40 mg PO DAILY #8 tablet 11/26/17 - Allergies Allergies/Adverse Reactions: Allergies Allergy/AdvReac Type Severity Reaction Status Date / Time No Known Allergies Allergy Verified 09/10/17 10:10 Review of Systems ROS Statement: Except As Marked, All Systems Reviewed And Found Negative Cardiovascular: Negative for: Chest Pain Respiratory: Positive for: Wheezing. Negative for: Cough Musculoskeletal: Negative for: Leg Pain (swelling or pain on calf) Neurological: Negative for: Dizziness Physical Exam - Reviewed Nursing Documentation Reviewed: Yes Vital Signs Reviewed: Yes - Physical Exam Appears: Positive for: No Acute Distress Head Exam: Positive for: ATRAUMATIC, NORMOCEPHALIC Skin: Positive for: Normal Color, Warm, Dry Eye Exam: Positive for: Normal appearance, EOMI, PERRL Neck: Positive for: Normal, Painless ROM, Supple Cardiovascular/Chest: Positive for: Regular Rate, Rhythm. Negative for: Murmur Respiratory: Positive for: Wheezing (BILATERAL), Other (Good airway entry. No retractions) Gastrointestinal/Abdominal: Positive for: Normal Exam, Soft. Negative for: Tenderness Extremity: Positive for: Normal ROM. Negative for: Pedal Edema, Deformity Neurologic/Psych: Positive for: Alert, Oriented. Negative for: Motor/Sensory Deficits - ECG O2 Sat by Pulse Oximetry: 96 (RA) Pulse Ox Interpretation: Normal Medical Decision Making Medical Decision Making: Time: 1235 A/P: Acute Asthma Exacerbation -- Treat with Three Duonebs and 60 mg Prednisone. -- Duoneb 3mg/0.5mg (3ml) UD 3 ml INH -- Duoneb 3mg/0.5mg (3ml) UD 3 ml INH -- Duoneb 3mg/0.5mg (3ml) UD 3 ml INH -- Prednisone 60 mg PO -- Peak Flow Pre/Post Tx -- Peak Flow Pre/Post Tx -- Peak Flow Pre/Post Tx Scribe Attestation: Documented by Michael Wright, acting as a scribe Gabe Valentino MD. Provider Scribe Attestation: All medical record entries made by the Scribe were at my direction and personally dictated by me. I have reviewed the chart and agree that the record accurately reflects my personal performance of the history, physical exam, medical decision making, and the department course for this patient. I have also personally directed, reviewed, and agree with the discharge instructions and disposition. 1349 Pt with improved wheeze and no longer SOB. Pt ambulatory and conversational without becoming SOB. Rx for Albuterol pump, albuterol nebulizer, and prednisone. Return parameters discussed. Disposition - Clinical Impression Clinical Impression: Asthma exacerbation - Disposition Referrals: Non [facility] Provider, [Primary Care Provider] - Disposition: Routine/Home Disposition Time: 13:58 Condition: IMPROVED Additional Instructions: Take medications as prescribed. Follow up with primary doctor in 3 to 5 days. Return to the emergency department if symptoms worsen. Prescriptions: Albuterol HFA [Ventolin HFA 90 mcg/actuation (8 g)] 2 puff IH [id number] #1 pump Albuterol 0.083% [Albuterol Sulfate 3 Ml] 3 ml IH Q4 #60 neb Prednisone [Deltasone] 40 mg PO DAILY #8 tablet Forms: [employer] (Maltese) Print Language: BELARUSIAN
== END 2017-11-26 13:50 | disposition home or self-care (01) ==
LOC: H.ER 12:01 → SUPCPDRO 12:01 → H.ER 13:50
DX: J45.901 Unspecified asthma with (acute) exacerbation (principal); F17.200 Nicotine dependence, unspecified, uncomplicated; G89.29 Other chronic pain; I10 Essential (primary) hypertension; J44.9 Chronic obstructive pulmonary disease, unspecified; Z79.899 Other long term (current) drug therapy

== ENCOUNTER 2018-01-07 05:13 | Emergency (ER) | payer MEDICAID ==
[2018-01-07 05:15] VITALS: BMI 29.5
[2018-01-07] MEDS ORDERED: Albuterol-Ipratrop 3 mg / 0.5 (3 ml) UD INH STA (05:27)
--- NOTE | 2018-01-07 05:43 | ED PDOC ---
HPI: SOB/CHF/COPD Time Seen by Provider: 01/07/18 05:25 Chief Complaint (Nursing): Respiratory Distress History Per: Patient History/Exam Limitations: no limitations Onset/Duration Of Symptoms: Hrs Current Symptoms Are (Timing): Better Additional Complaint(s): Hx of COPD, opiate abuse presenting with wheezing, shortness of breath. States that his trigger was the cold weather and smoking cigarettes. Denies chest pain, fevers, significant cough. Past Medical History Reviewed: Historical Data, Nursing Documentation Vital Signs: Last Vital Signs Temp 97.6 F 01/07/18 05:16 Pulse 74 01/07/18 05:16 Resp 22 01/07/18 05:16 BP 148/72 01/07/18 05:16 Pulse Ox 100 01/07/18 05:16 - Medical History PMH: Arthritis, Asthma, COPD, Diverticulitis, HTN, Chronic Pain (back) Denies: Diabetes, Hepatitis, HIV, Chronic Kidney Disease, Seizures, Sexually Transmitted Disease - Surgical History Surgical History: Hernia Repair - Family History Family History: States: Unknown Family Hx, Hypertension - Immunization History Hx Tetanus Toxoid Vaccination: No Hx Influenza Vaccination: No Hx Pneumococcal Vaccination: No - Home Medications Home Medications: Ambulatory Orders Medication Instructions Recorded Albuterol HFA [Ventolin HFA 90 1 puff INH RQ6 PRN #1 inhaler 07/21/17 mcg/actuation (8 g)] hydrOXYzine HCl [Atarax] 25 mg PO DAILY PRN #30 tab 07/21/17 traZODone [Desyrel] 50 mg PO HS PRN #30 tab 07/21/17 Albuterol Sulfate [Proair Hfa] 0.09 mg IH Q6H PRN #2 inh 09/10/17 Cyclobenzaprine [Cyclobenzaprine 10 mg PO TID #20 tab 09/10/17 HCl] Ibuprofen [Motrin] 600 mg PO Q6 #20 tab 09/10/17 predniSONE [predniSONE Tab] 20 mg PO BID 5 Days tab 09/10/17 Albuterol 0.083% [Albuterol 3 ml IH Q4 #60 neb 11/26/17 Sulfate 3 Ml] Albuterol HFA [Ventolin HFA 90 2 puff IH [id number] #1 pump 11/26/17 mcg/actuation (8 g)] Prednisone [Deltasone] 40 mg PO DAILY #8 tablet 11/26/17 Albuterol Sulfate [Ventolin Hfa] 1 puff IH Q4 PRN #1 ml 01/07/18 predniSONE [predniSONE Tab] 60 mg PO DAILY #9 tab 01/07/18 - Allergies Allergies/Adverse Reactions: Allergies Allergy/AdvReac Type Severity Reaction Status Date / Time No Known Allergies Allergy Verified 09/10/17 10:10 Curb-65 Severity Score - CURB-65 Severity Score Confusion: No Bun >19mg/dl (>7mmol/L): No Respiratory Rate greater than/equal to 30: No Systolic BP <90 or Diastolic BP less than/equal 60mmHg: No Age >64: No Curb-65 Score: 0 Percentage 30-day mortality: 0.6% Review of Systems ROS Statement: Except As Marked, All Systems Reviewed And Found Negative Respiratory: Positive for: Shortness of Breath, Wheezing Physical Exam - Reviewed Nursing Documentation Reviewed: Yes Vital Signs Reviewed: Yes - Physical Exam Appears: Positive for: Well, Non-toxic, No Acute Distress Head Exam: Positive for: ATRAUMATIC, NORMAL INSPECTION, NORMOCEPHALIC Skin: Positive for: Normal Color, Warm, DRY Eye Exam: Positive for: EOMI, Normal appearance, PERRL ENT: Positive for: Normal ENT Inspection Neck: Positive for: Normal, Painless ROM Cardiovascular/Chest: Positive for: Regular Rate, Rhythm Respiratory: Positive for: Wheezing. 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 Negative for: Motor/Sensory Deficits - ECG O2 Sat by Pulse Oximetry: 100 Pulse Ox Interpretation: Normal Medical Decision Making Medical Decision MakinAM Patient presenting with wheezing --Very comfortable, no respiratory distress, normal vitals --Wheezing on exam --Presentation consistent with mild COPD exacerbation, not concerned for ACS/PE/PTX/PNA/etc. --Will give additional neb and prednisone and reassess 630AM --Patient is no longer wheezing, appears very well appearing --Will discharge home with ventolin and prednisone --Advised to followup with PMD Disposition - Clinical Impression Clinical Impression: COPD exacerbation - Patient ED Disposition Is Patient to be Admitted: No - Disposition Referrals: Diony Mcdaniel [Outside] Disposition: Routine/Home Disposition Time: 06:32 Condition: IMPROVED Prescriptions: Albuterol Sulfate [Ventolin Hfa] 1 puff IH Q4 PRN #1 ml PRN Reason: Wheezing predniSONE [predniSONE Tab] 60 mg PO DAILY #9 tab Instructions: Exacerbation of COPD Forms: [employer] (Sudanese)
[2018-01-07] MEDS ORDERED: Albuterol-Ipratrop 3 mg / 0.5 (3 ml) UD ONE (05:46)
[2018-01-07 06:56] VITALS: BP 148/72; PULSE 80; RESP 16; TEMP 98.2; O2SAT 96
== END 2018-01-07 06:55 | disposition home or self-care (01) ==
LOC: H.ER 05:13
DX: J44.1 Chronic obstructive pulmonary disease with (acute) exacerbation (principal)

== ENCOUNTER 2018-07-01 14:16 | Emergency (ER) | payer MEDICAID ==
[2018-07-01 14:19] VITALS: RESP 16; TEMP 97.9
[2018-07-01 14:20] VITALS: BMI 32.5
[2018-07-01] MEDS ORDERED: Albuterol-Ipratrop 3 mg / 0.5 (3 ml) UD INH STA (15:04)
[2018-07-01 15:41] VITALS: BP 156/72; PULSE 88; O2SAT 95
--- NOTE | 2018-07-01 15:43 | ED PDOC ---
HPI: SOB/CHF/COPD Time Seen by Provider: 07/01/18 14:29 Chief Complaint (Nursing): Shortness Of Breath Chief Complaint (Provider): Shortness Of Breath History Per: Patient History/Exam Limitations: no limitations Onset/Duration Of Symptoms: Days (x2) Current Symptoms Are (Timing): Still Present Additional Complaint(s): 57 year old male, known to this ED for multiple visits with medical history of asthma and heroin abuse, presents with a complaint of chest tightness and shortness of breath since last night. He reports symptoms feel similar to previous asthma exacerbation episodes but ran out of his prescribed Ventolin pump. Patient initially went to an Urgent Care and given a shot of Solu-Medrol and nebulizer treatment then advised to go to ED for further evaluation. He denies fever, chills, or chest pain. Of note, patient states he is currently being evaluated by a barrel header for difficulty sleeping. As per , patient has to sleep sitting up and has loud snoring. Past Medical History Reviewed: Historical Data, Nursing Documentation, Vital Signs Vital Signs: Last Vital Signs Temp 97.9 F 07/01/18 14:19 Pulse 88 07/01/18 15:40 Resp 16 07/01/18 15:40 BP 156/72 H 07/01/18 15:40 Pulse Ox 95 07/01/18 15:40 Primary Care Provider: Roxana Staley - Medical History PMH: Arthritis, Asthma, COPD, Diverticulitis, HTN, Chronic Pain (back) Denies: Diabetes, Hepatitis, HIV, Chronic Kidney Disease, Seizures, Sexually Transmitted Disease - Surgical History Surgical History: Hernia Repair - Family History Family History: States: Unknown Family Hx, Hypertension - Social History Current smoker - smoking cessation education provided: Yes Drugs: Opiates (heroin) - Immunization History Hx Tetanus Toxoid Vaccination: No Hx Influenza Vaccination: No Hx Pneumococcal Vaccination: No - Home Medications Home Medications: Ambulatory Orders Medication Instructions Recorded Albuterol HFA [Ventolin HFA 90 1 puff INH RQ6 PRN #1 inhaler 07/21/17 mcg/actuation (8 g)] hydrOXYzine HCl [Atarax] 25 mg PO DAILY PRN #30 tab 07/21/17 traZODone [Desyrel] 50 mg PO HS PRN #30 tab 07/21/17 Albuterol Sulfate [Proair Hfa] 0.09 mg IH Q6H PRN #2 inh 09/10/17 Cyclobenzaprine [Cyclobenzaprine 10 mg PO TID #20 tab 09/10/17 HCl] Ibuprofen [Motrin] 600 mg PO Q6 #20 tab 09/10/17 predniSONE [predniSONE Tab] 20 mg PO BID 5 Days tab 09/10/17 Albuterol 0.083% [Albuterol 3 ml IH Q4 #60 neb 11/26/17 Sulfate 3 Ml] Albuterol HFA [Ventolin HFA 90 2 puff IH [id number] #1 pump 11/26/17 mcg/actuation (8 g)] Prednisone [Deltasone] 40 mg PO DAILY #8 tablet 11/26/17 Albuterol Sulfate [Ventolin Hfa] 1 puff IH Q4 PRN #1 ml 01/07/18 predniSONE [predniSONE Tab] 60 mg PO DAILY #9 tab 01/07/18 Albuterol 0.083% [Albuterol 3 ml IH Q4 PRN #50 neb 07/01/18 Sulfate 3 Ml] Albuterol HFA [Ventolin HFA 90 2 puff IH Q4H PRN #1 inh 07/01/18 mcg/actuation (8 g)] Prednisone [Deltasone] 60 mg PO DAILY #12 tablet 07/01/18 - Allergies Allergies/Adverse Reactions: Allergies Allergy/AdvReac Type Severity Reaction Status Date / Time No Known Allergies Allergy Verified 07/01/18 14:20 Review of Systems ROS Statement: Except As Marked, All Systems Reviewed And Found Negative Constitutional: Negative for: Fever, Chills Cardiovascular: Positive for: Other (chest tightness). Negative for: Chest Pain Respiratory: Positive for: Shortness of Breath Physical Exam - Reviewed Nursing Documentation Reviewed: Yes Vital Signs Reviewed: Yes - Physical Exam Appears: Positive for: No Acute Distress (tired/sleepy) Head Exam: Positive for: ATRAUMATIC, NORMOCEPHALIC Skin: Positive for: Warm, Dry Eye Exam: Positive for: Other (3mm pupils bilaterally) Neck: Positive for: Painless ROM, Supple Cardiovascular/Chest: Positive for: Regular Rate, Rhythm. Negative for: Murmur Respiratory: Positive for: Wheezing (diffuse expiratory bilaterally). Negative for: Accessory Muscle Use, Respiratory Distress Gastrointestinal/Abdominal: Positive for: Soft. Negative for: Tenderness Back: Positive for: Normal Inspection. Negative for: Decreased ROM Extremity: Positive for: Normal ROM. Negative for: Deformity Lymphatic: Negative for: Adenopathy Neurological/Psych: Positive for: Oriented. Negative for: Motor/Sensory Deficits - ECG O2 Sat by Pulse Oximetry: 95 (RA) Pulse Ox Interpretation: Normal Medical Decision Making Medical Decision Making: Initial Impression: asthma exacerbation Initial Plan: Duoneb INH Time: 1540 --Upon provider reevaluation, patient is medically stable, reports improvement in symptoms, and eager to go home. Provider strongly advised to follow up with barrel header for sleep apnea study and pulmonary function test. Patient verbalizes understanding with agreement to discharge plan. Return precautions discussed. Clinical Impression: sleep apnea; asthma exacerbation Scribe Attestation: Documented by Talita Calero, acting as a scribe for Haleigh Kerns MD. Provider Scribe Attestation: All medical record entries made by the Scribe were at my direction and personally dictated by me. I have reviewed the chart and agree that the record accurately reflects my personal performance of the history, physical exam, medical decision making, and the department course for this patient. I have also personally directed, reviewed, and agree with the discharge instructions and disposition. Disposition - Clinical Impression Clinical Impression: Asthma exacerbation, Obstructive sleep apnea - Patient ED Disposition Is Patient to be Admitted: No Counseled Patient/Family Regarding: Diagnosis, Need For Followup - Disposition Disposition: Routine/Home Disposition Time: 15:40 Condition: IMPROVED Additional Instructions: FOLLOWUP WITH YOUR [facility] LAP TENDER IN 2-3 DAYS YOU SHOULD GET PULMONARY FUNCTION TESTS AND SLEEP APNEA TESTING. Prescriptions: Albuterol 0.083% [Albuterol Sulfate 3 Ml] 3 ml IH Q4 PRN #50 neb PRN Reason: asthma Albuterol HFA [Ventolin HFA 90 mcg/actuation (8 g)] 2 puff IH Q4H PRN #1 inh PRN Reason: ASTHMA Prednisone [Deltasone] 60 mg PO DAILY #12 tablet Instructions: Asthma, Adult (DC), Obstructive Sleep Apnea, Adult (DC) Forms: [facility] School/Work Excuse
== END 2018-07-01 15:50 | disposition home or self-care (01) ==
LOC: H.ER 14:16
DX: J45.901 Unspecified asthma with (acute) exacerbation (principal); G47.33 Obstructive sleep apnea (adult) (pediatric)